=== PATIENT | male | born 1990 | race Caucasian/White ===

== ENCOUNTER 2025-03-14 09:13 | Emergency (ER) | payer SELFPAY ==
[~2025-03-14] VITALS: Ht 172.7 cm; Wt 61.9 kg
[2025-03-14] MEDS ORDERED: ISOVUE-370 76% 100 ML VIAL As Ordered ONE (09:30)
[2025-03-14 10:02] LABS: BASO # 0.0 10^3/uL (0.0-0.2); BASO % 0.6 % (0.0-1.0); EOS # 0.1 10^3/uL (0.0-0.5); EOS % 2.6 % (0.0-3.0); LYMPH # 1.7 10^3/uL (1.5-5.0); LYMPH % 31.5 % (24.0-44.0); MONO # 0.4 10^3/uL (0.0-0.8); MONO % 6.7 % (2.0-8.0); NEUTROPHILS # 3.1 10^3/uL (1.5-8.5); NEUTROPHILS % 58.4 % (36.0-66.0); PLATELET COUNT, AUTOMATED 272 10^3/uL (150-450)
[2025-03-14] MEDS ORDERED: HOME MED LIST COMPLETE! XX SCH (10:10)
[2025-03-14 10:14] LABS: INR 0.9
[2025-03-14] MEDS: MECLIZINE 25 MG TABLET PO ONE (13:04)
[2025-03-14] MEDS ORDERED: MECL-209 PO (15:24)
[2025-03-14 15:30] VITALS: BP 138/78; TEMP 98.4; O2SAT 99
== END 2025-03-14 15:46 | disposition home or self-care (01) ==
LOC: M ED 09:13
DX: H81.4 Vertigo of central origin (principal); I25.2 Old myocardial infarction; F17.210 Nicotine dependence, cigarettes, uncomplicated; Z91.09 Other allergy status, other than to drugs and biological substances; Z79.899 Other long term (current) drug therapy
CPT/HCPCS: 36415; 70450; 70496; 70498; 70551; 71045; 80047; 85025; 85610; 85730; 93005; 93041; 94760; 99285; Q9967